=== PATIENT | female | born 1955 | race Caucasian/White ===

== ENCOUNTER 2017-08-03 08:39 | Inpatient (IN) ==
[2017-08-03] MEDS ORDERED: Naloxone 0.4 MG/ML INJ IVP PRN (11:08)
[2017-08-03] MEDS ORDERED: Ondansetron 4 MG/2 ML VIAL IVP PRN (11:08)
[2017-08-03] MEDS ORDERED: Nitroglycerin 0.4 MG TAB.SUBL SL PRN (11:30)
--- NOTE | 2017-08-03 11:40 | Internal Med History&Physical ---
Date of Encounter: 08/03/17 Time of Encounter: 10:30 Assessment and Plan (1) Pneumonia Current visit: Yes Status: Acute 1-View CXR today shows patchy opacity in the lower lung zones, right greater than left. Upper lung zones are clear. Cardiomediastinal silhouette within normal limits as is pulmonary vasculature. No pneumothorax. No large pleural effusion. Pt. reports dx of URI one week ago and failing OP tx. States sx began 1 week ago and worsened in last 48 hours. Denies recent hospitalization. Pt. reports SOB, dyspnea, cough w/yellow/green sputum production, nasal congestion, fever, and chills. Pt. currently meets SIRS criteria w/WBC of 12.2, infection from pneumonia, and RR of 24. Blood cultures x2 and sputum cultures ordered. Legionella and strep pneumoniae antigens ordered. IVPB levaquin 750 mg daily for infection coverage. Supplemental O2 w/titration and SPO2 monitoring. DuoNebs Q4 scheduled. Tessalon 200 mg 3 times a day. 40 mg IVP Solu-Medrol for inflammation (CRP 9 on admission). Will adjust abx coverage based on culture results. Monitor pt. and f/u labs for signs of increasing infection. Pt. is high risk for further morbidity and infection based on OP tx failure, current sx , and hx. Inpatient. Qualifiers: Pneumonia type: due to unspecified organism Laterality: bilateral Lung location: lower lobe of lung Qualified Code(s): J18.9 - Pneumonia, unspecified organism (2) Elevated troponin Current visit: Yes Status: Acute Initial troponin of 0.15 on admission, most likely d/t demand ischemia r/t current pneumonia, SOB, and dyspnea. Will trend x2. Pt. reports CP which worsens w/inspiration and cough. Continuous cardiac telemetry. Nitroglycerin PRN. Will start heparin drip if troponins rise in subsequent lab draws. (3) Chest pain Current visit: Yes Status: Acute Acute chest pain that pt. states worsens w/inspiration and is non-radiating. Initial troponin is 0.15 on admission, most likely d/t demand ischemia r/t current pneumonia, SOB, and dyspnea. Pt. denies hx of cardiac issues, angioplasty/stents, or previous [place]. Will trend trops x2. Continuous cardiac telemetry. Nitroglycerin when necessary. 325 mg aspirin now. Lipitor 40 mg at bedtime ordered. Will monitor pt. and f/u labs closely. Qualifiers: Chest pain type: other chest pain Qualified Code(s): R07.89 - Other chest pain; R07.8 - Other chest pain (4) SIRS (systemic inflammatory response syndrome) Current visit: Yes Status: Acute Patient currently meets SIRS criteria of WBC of 12.2, infection related to pneumonia of bilateral lower lobes, and RR of 24. Temp 99.5, HR 85 bpm, BP 118/ 60, lactic acid 1.1, creatinine 1.04, and total bilirubin 0.4. IV 0.9 NS @ 100 mL/HR. IVPB levaquin 750 mg daily for infection coverage. Blood cultures x 2. Sputum culture. Legionella and strep pneumoniae antigens ordered. Will adjust abx coverage based on culture results. Will monitor pt. and f/u labs closely for signs of increasing infection. (5) JUAN (acute kidney injury) Current visit: Yes Status: Acute Acute kidney injury w/GFR of 54 most likely d/t dehydration from recent URI. IV 0.9 NS @ 100 mL/HR. Will avoid nephrotoxins and monitor f/u labs and I&O. (6) HLD (hyperlipidemia) Current visit: Yes Status: Chronic Hx of chronic HLD. Pt. does not currently take statin. Lipid panel in a.m. labs. Lipitor 40 mg HS ordered. Qualifiers: Hyperlipidemia type: pure hypercholesterolemia Qualified Code(s): E78.00 - Pure hypercholesterolemia, unspecified; E78.0 - Pure hypercholesterolemia (7) Thyroid disease Current visit: Yes Status: Chronic Hx of chronic thyroid disease. Continue pts. Synthroid. (8) DVT prophylaxis Current visit: Yes Status: Acute Lovenox 40 mg 0600 for DVT prophlaxis. Monitor pt. for signs of bleeding. Internal Medicine - H&P: HPI Chief complaint: SOB/Dyspnea Admitted From: Intrahospital Transfer Plans for Post Hospital Care: Home History of present illness: Ms. Barone is a 61 year old female with medical hx of thyroid disease, HLD, and HSV-1 presents from [place] ED with chief complaint of SOB and dyspnea for 1 week which pt. states has become much worse in the past 48 hours. She states she was treated for URI a week ago and has only gotten worse. Pt. reports centralized chest pain that does not radiate which is worse w/inspiration and cough. She reports fever of 102F at home, cold sores around her mouth since Friday, shortness of breath, dyspnea, chills, nasal congestion, productive cough with yellow/green sputum, chest pain, weakness, and dizziness. Patient denies changes in vision, abdominal pain, diarrhea, constipation, nausea, vomiting, unusual bleeding, presyncope, or syncope. Past Med Surg Social Fam HX - Past Medical History Source: patient, old records reviewed Medical history: hyperlipidemia, thyroid disease, other (HSV-1) Psychiatric history: no psych history - Past Surgical History Surgical History: hysterectomy (Partial), other (Gastric bypass, carpal tunnel bilaterally, and tonsillectomy) - Social History Smoking Status: Never smoker Smokeless Tobacco Status: No Alcohol use: none Drug use: none Current living situation: Home, With Family Activity Level: Independent ambulation Recent Out of Country Travel Within the Last 8 Weeks: No Exposure or Possible Exposure to Illness During Travel: No - Family History Mother Race: Family Member Ethnicity: Non- Living Status: Age at : 85 Cause of : ME Hx Family Cardiac Disorders: Yes (MIx4, Stent placement) Hx Family Cancer: Yes (skin cancer) Father Race: Family Member Ethnicity: Non- Living Status: Still Living Hx Family Cardiac Disorders: Yes (Pacemaker) Hx Family Cancer: Yes (Prostate) Brother History Unknown: Yes Race: Family Member Ethnicity: Non- Living Status: Still Living Sister Race: Family Member Ethnicity: Non- Living Status: Still Living Hx Family Cancer: Yes (Breast, Thyroid) Internal Medicine - H&P: Meds Acyclovir [Zovirax] 200 mg PO 5XD 08/03/17 [History] Ergocalciferol (VITAMIN D2) [Vitamin D2] 50,000 unit PO QWEEK 08/03/17 [History] Levothyroxine [Synthroid] 112 mcg PO DAILY 08/03/17 [History] 3 Allergy/AdvReac Type Severity Reaction Status Date / Time codeine Allergy Palpitation Verified 03/27/15 11:45 s Penicillins [PCN] Allergy Rash Verified 03/27/15 11:45 adhesive AdvReac Rash Verified 03/27/15 11:45 latex AdvReac Rash Verified 03/27/15 11:45 All Systems PM: A 10-system review of systems was performed and is negative for pertinent findings except as documented above in the HPI. - Constitutional Constitutional: as per HPI, chills, fever(s), weakness, no night sweats - EENT Eyes: no change in vision, no discharge, no pain, no photophobia Ears: no ear discharge, no ear pain, no tinnitus Nose, mouth and throat: no dysphagia, no nasal discharge, no neck pain, no sore throat - Breasts Breasts: as per HPI - Cardiovascular Cardiovascular ROS IM: as per HPI, chest pain, dyspnea, dyspnea on exertion, no diaphoresis, no lightheadedness, no palpitations, no syncope - Respiratory Respiratory: as per HPI, cough, dyspnea, dyspnea on exertion, change in phlegm color, pain with cough, no wheezing, no excessive phlegm production - Gastrointestinal Gastrointestinal: no abdominal pain, no diarrhea, no hematemesis, no hematochezia, no melena, no nausea, no vomiting - Genitourinary Genitourinary: no change in urinary stream, no dysuria, no flank pain, no hematuria Menstruation: as per HPI, post hysterectomy - Musculoskeletal Musculoskeletal ROS IM: no numbness, no tingling - Integumentary Integumentary IM: no rash, no unusual bruising - Neurological Neurological ROS: as per HPI, dizziness, no confusion, no convulsions, no focal weakness, no numbness, no tingling, no tremor(s) - Psychiatric Psychiatric: as per HPI - Endocrine Endocrine IM: as per HPI - Hematologic/Lymphatic Hematologic/Lymphatic: no easy bruising - Allergic/Immunologic Allergic/Immunologic: as per HPI - Constitutional General appearance: Present: cooperative, mild distress (Respiratory d/t cough/ SOB), A&O X 3, pleasant, obese, answers questions appropriately - Head Head exam: Present: atraumatic, normocephalic - Eye Eye exam: Present: PERRL, conjuntiva pink, sclera anicteric Pupils: Present: PERRL - ENT ENT exam: Present: normal exam, normal external ear exam - Neck Neck exam general surgery: Present: normal inspection, supple, trachea midline. Absent: lymphadenopathy - Respiratory Respiratory exam: Present: accessory muscle use, decreased breath sounds - Cardiovascular Cardiovascular exam: Present: RRR, +S1, +S2. Absent: diastolic murmur, gallop, rubs, systolic murmur - GI/Abdominal GI/Abdominal exam: Present: normal bowel sounds, soft, no peritoneal signs. Absent: distended, tenderness - Rectal Rectal exam: Present: deferred - Additional comments: exam deferred. - Extremities Exam Extremities exam: Present: warm, radial pulses palpable and symmetrical. Absent : calf tenderness, cyanotic, pedal edema - Back Exam Back exam: Present: normal inspection - Neurological Exam Neurological exam: Present: CN II-XII intact, oriented X3, no focal deficits. Absent: pronater drift, facial droop, speech deficit - Psychiatric Psychiatric exam: Present: normal affect, normal mood - Skin Skin exam: Present: dry, intact Internal Med - H&P Results - Diagnostic Studies Chest x-ray Additional comments: 1-View CXR today shows there is patchy opacity in the lower lung zones, right greater than left. Upper lung zones are clear. Cardiomediastinal silhouette within normal limits as is pulmonary vasculature. No pneumothorax. No large pleural effusion.
[2017-08-03] MEDS ORDERED: MethylPREDNISolone 40 MG/ML VIAL IVP ONE (11:51)
[2017-08-03] MEDS: Ipratropium/Albuterol Neb 3 ML IH SCH ×3 (12:10→20:50)
[2017-08-03] MEDS: Benzonatate 100 MG CAPSULE PO PRN ×2 (12:18→21:13)
[2017-08-03] MEDS: Lactobacillus 1 EACH CAP.SPRINK PO SCH (12:18)
[2017-08-03] MEDS: Acetaminophen 325 MG TABLET PO PRN (12:18)
[2017-08-03] MEDS: Acyclovir 200 MG CAPSULE PO SCH ×4 (12:19→23:12)
[2017-08-03] MEDS: 0.9 % Sodium Chloride 1,000 ML IVC SCH ×2 (12:19→23:08)
[2017-08-03] MEDS: Levofloxacin 750 MG/150 ML 750 MG/150 ML BAG IVPB SCH (12:20)
[2017-08-03 15:47] LABS: Bilirubin,Urine Small (Negative); Blood,Urine Negative (Negative); Clarity,Urine Turbid (Clear); Color,Urine Red (Yellow); Glucose,Urine (UA) Normal (Normal); Ketones,Urine Trace mg/dL (Negative); Leukocyte Esterase,Urine Moderate (Negative); Nitrite,Urine Positive (Negative); Protein,Urine 30 mg/dL (Neg-Trace); Specific Gravity,Urine > 1.030 (1.010-1.025); Urobilinogen,Urine Normal (Normal)
[2017-08-03 15:49] LABS: Bacteria,Urine Few per hpf (None-Few); RBC,Urine 0-3 per hpf (0-3); Squamous Epithelial Cell,Urine Many per lpf (None-Few); WBC,Urine 30-50 per hpf (0-3)
[2017-08-03] MEDS: *HR* HYDROmorphone (PF) 1 MG/ML SYRINGE IVP PRN (21:13)
[2017-08-04] MEDS: Ipratropium/Albuterol Neb 3 ML IH SCH ×7 (00:28→23:33)
[2017-08-04] MEDS: Melatonin 3 MG TABLET PO PRN ×2 (00:57→21:07)
[2017-08-04 04:41] LABS: INR 1.3; Prothrombin Time 13.6 Seconds (9.4-12.1)
[2017-08-04 04:42] LABS: Basophils % 0.1 %; Hematocrit 30.6 % (35.3-44.9); Immature Granulocytes % 1.2 % (0-4); Lymphocytes # 0.8 K/mcL (0.6-4.6); Lymphocytes % 6.7 %; Mean Corpuscular HGB Conc 32.7 g/dL (31.6-35.5); Mean Corpuscular Hemoglobin 31.3 pg (28.0-33.3); Mean Corpuscular Volume 95.6 fL (83.0-100.0); Mean Platelet Volume 12.9 fL (9.4-12.4); Monocytes # 0.5 K/mcL (0.0-1.3); Monocytes % 4.3 %; Neutrophils # 10.4 K/mcL (1.6-8.9); Platelet Count 150 K/mcL (140-400); Red Cell Distribution Width 13.8 % (11.5-14.5); Segmented Neutrophils % 87.7 %
[2017-08-04 04:44] LABS: Activated Partial Thrombo Time 29.2 Seconds (26.0-36.0)
[2017-08-04 05:01] LABS: Alanine Aminotransferase 23 Units/L (0-55); Albumin 2.3 g/dL (3.5-5.0); Albumin/Globulin Ratio 0.6 (1.1-2.2); Alkaline Phosphatase 82 Units/L (38-126); Aspartate Amino Transferase 21 Units/L (5-34); BUN/Creatinine Ratio 21 (6-26); Bilirubin,Total 0.6 mg/dL (0.2-1.2); Blood Urea Nitrogen 23 mg/dL (7-20); Calcium 8.2 mg/dL (8.6-10.8); Carbon Dioxide 23 mEq/L (19-29); Chloride 108 mEq/L (98-109); Chol/HDL Ratio 4.4 (0-4.9); Cholesterol 123 mg/dL (< 200); Globulin 3.7 g/dL (2.4-3.5); Glucose 159 mg/dL (70-99); HDL Cholesterol 28 mg/dL (40-59); LDL Cholesterol,Calculated 78 mg/dL (0-99); Magnesium 1.9 mg/dL (1.6-2.6); Osmolality,Calculated 293 (280-300); Potassium 4.1 mEq/L (3.5-4.5); Sodium 138 mEq/L (136-145); Triglycerides 86 mg/dL (< 150); eGFR For African Americans > 60 (> 60); eGFR For Non-African Americans 51 (> 60)
[2017-08-04] MEDS: *HR* Enoxaparin 40 MG/0.4 ML SYRINGE SQ SCH (06:41)
--- NOTE | 2017-08-04 09:43 | Internal Med Progress Note ---
<Juanito Kaur - Last Filed: 08/04/17 15:59> Date of Encounter: 08/04/17 Time of Encounter: 08:00 - Assessment and plan (1) Pneumonia Current Visit: Yes Status: Acute Assessment and plan: CXR performed on 08/03/17: Patchy opacity and lower lung zones, R greater than L. SIRS criteria on admission: WC of 12.2, infection, respiratory rate of 24. Blood and sputum cultures ordered; sputum culture positive for gram-positive cocci. Legionella and strep pneumo antigens are negative. White count has decreased to 11.8. Plan: -Levaquin 750 mg IV daily, started on 08/03/17; day 2 of antibiotics -Tessalon 200 mg TID -DuoNeb 3 mL inhaled every 4 -Supplemental O2 with titration -Adjust antibiotics based on culture results. -Order respiratory panel. Qualifiers: Pneumonia type: due to unspecified organism Laterality: bilateral Lung location: lower lobe of lung Qualified Code(s): J18.9 - Pneumonia, unspecified organism (2) Elevated troponin Current Visit: Yes Status: Acute Assessment and plan: Initial troponin of 0.15 on admission. Likely due to demand ischemia. Trend troponin 2. Patient's chest pain is exacerbated with cough and deep inspiration. Plan: -Trend troponin -Cardiac telemetry. -Nitroglycerin 0.4 mg SL Q5min PRN -Start heparin drip if rise in troponin. -Obtain echocardiogram. (3) Chest pain Current Visit: Yes Status: Acute Assessment and plan: Exacerbated by cough and deep inspiration, nonradiating. Initial troponin 0.15 on admission. No history of cardiac issues, angioplasty/stents, or previous [place]. Patient's chest pain this morning has resolved. Plan: -Trend troponin -Continuous cardiac telemetry -Cardiac diet Qualifiers: Chest pain type: other chest pain Qualified Code(s): R07.89 - Other chest pain; R07.8 - Other chest pain (4) SIRS (systemic inflammatory response syndrome) Current Visit: Yes Status: Acute Assessment and plan: SIRS criteria on admission: White blood cell count 12.2, pneumonia, respiratory rate 24. Patient's white count has since decreased to 11.8, respiratory rate this morning was 16. Continue IV antibiotics. (5) Thyroid disease Current Visit: Yes Status: Chronic Assessment and plan: Synthroid 112 mcg PO (6) DVT prophylaxis Current Visit: Yes Status: Acute Assessment and plan: Lovenox 40 mg 0600 for DVT prophylaxis. - Subjective Interval history: Patient is a 61-year-old female who presented to the hospital on 08/03/17 with a chief complaint of shortness of breath and dyspnea of one week's duration. Patient states that her shortness of breath was much worse in the 48 hours leading up to admission. She was treated for a URI one week ago, and has only gotten worse. She also complains of centralized, nonradiating chest pain. Her chest pain is exacerbated with inspiration and cough. Patient had a fever of 102 degrees at home. She has had cold sores around her mouth since Friday. She also reported having chills, nasal congestion, productive cough of yellow- green sputum, chest pain, weakness, dizziness. Patient met SIRS criteria on admission with a white count of 12.2, known infection source of pneumonia, and a respiratory rate of 24. CXR demonstrated the presence of patchy opacities in the lower lung zones, R greater than L. Upper zones were clear. Blood cultures 2 and sputum cultures were ordered. Legionella and strep pneumo antigens were ordered. Patient was started on IV Levaquin 750 mg daily for infection coverage. Supplemental oxygen with titration. DuoNeb's every 4, Tessalon 200 mg 2 times a day, 40 mg Solu-Medrol for inflammation. Patient had an elevated troponin on admission 0.15. This is most likely due to demand ischemia. Trend troponin. Continuous cardiac telemetry. Nitroglycerin when necessary. Sputum culture was positive for gram-positive diplococci. Legionella and strep pneumo antigens were negative. White count this morning was 11.8, was 12.2 on admission. Urinalysis revealed the following: Red urine, turbid. Positive nitrate, leukocyte esterase, white blood cells, many epithelial cells. Culture indicated. Patient was seen and examined at bedside this morning. She reports that she is feeling much better than she did on arrival. Denies chest pain, cough, fever, chills, shortness of breath, or sputum production. - Constitutional Vitals: Temp Pulse Resp BP Pulse Ox 97.6 F 88 16 102/56 94 08/04/17 07:20 08/04/17 07:20 08/04/17 07:20 08/04/17 07:20 08/04/17 07:20 General appearance: Present: cooperative, A&O X 3, pleasant, obese, answers questions appropriately - Head Head exam: Present: atraumatic, normocephalic - Eye Eye exam: Present: PERRL, conjuntiva pink, sclera anicteric Pupils: Present: PERRL - Neck Neck exam general surgery: Present: supple, trachea midline. Absent: lymphadenopathy - Respiratory Respiratory exam: Present: decreased breath sounds. Absent: accessory muscle use, rales, rhonchi, wheezes - Cardiovascular Cardiovascular exam: Present: RRR, +S1, +S2. Absent: diastolic murmur, gallop, rubs, systolic murmur - Extremities Exam Extremities exam: Present: warm, radial pulses palpable and symmetrical. Absent : calf tenderness, cyanotic, pedal edema - Skin Skin exam: Present: dry, intact Internal Medicine: Result - Labs CBC & Chem 7: 08/04/17 03:57 08/04/17 03:57 Labs: Short CBC 08/04/17 Range/Units 03:57 WBC 11.8 H (4.3-11.1) K/mcL Hgb 10.0 L D (11.5-15.4) g/dL Hct 30.6 L (35.3-44.9) % Plt Count 150 (140-400) K/mcL Neutrophils # 10.4 H (1.6-8.9) K/mcL BMP 08/04/17 03:57 Sodium 138 Potassium 4.1 Chloride 108 Carbon Dioxide 23 BUN 23 H Creatinine 1.08 Glucose 159 H Calcium 8.2 L Cardiac Enzymes 08/03/17 Range/Units 14:03 Troponin I 0.11 H* (0-0.03) ng/mL Liver Function 08/04/17 Range/Units 03:57 Total Bilirubin 0.6 (0.2-1.2) mg/dL AST 21 (5-34) Units/L ALT 23 (0-55) Units/L Alkaline Phosphatase 82 (38-126) Units/L Albumin 2.3 L (3.5-5.0) g/dL Urine 08/03/17 Range/Units 13:34 Urine Color Red A (Yellow) Urine Clarity Turbid A (Clear) Urine pH 6.0 (5.0-8.0) pH Units Ur Specific [place] > 1.030 H (1.010-1.025) Urine Protein 30 H (Neg-Trace) mg/dL Urine Glucose (UA) Normal (Normal) mg/dL - ABG Interpretation ABG results: PT/INR, D-dimer PT 13.6 Seconds (9.4-12.1) H 08/04/17 03:57 Consult Discharge Plan - Plan Referrals: Jade Jay, NATURAL DEVELOPER [Primary Care Provider] - <J Carlos Cerda - Last Filed: 08/04/17 19:58> Date of Encounter: 08/04/17 - Constitutional Vitals: Temp Pulse Resp BP Pulse Ox 97.9 F 95 17 99/59 93 08/04/17 16:41 08/04/17 16:41 08/04/17 16:41 08/04/17 16:41 08/04/17 16:41 Internal Medicine: Result - Labs CBC & Chem 7: 08/04/17 03:57 08/04/17 03:57 Labs: Short CBC 08/04/17 Range/Units 03:57 WBC 11.8 H (4.3-11.1) K/mcL Hgb 10.0 L D (11.5-15.4) g/dL Hct 30.6 L (35.3-44.9) % Plt Count 150 (140-400) K/mcL Neutrophils # 10.4 H (1.6-8.9) K/mcL BMP 08/04/17 03:57 Sodium 138 Potassium 4.1 Chloride 108 Carbon Dioxide 23 BUN 23 H Creatinine 1.08 Glucose 159 H Calcium 8.2 L Cardiac Enzymes 08/04/17 Range/Units 10:54 Troponin I 0.10 H* (0-0.03) ng/mL Liver Function 08/04/17 Range/Units 03:57 Total Bilirubin 0.6 (0.2-1.2) mg/dL AST 21 (5-34) Units/L ALT 23 (0-55) Units/L Alkaline Phosphatase 82 (38-126) Units/L Albumin 2.3 L (3.5-5.0) g/dL - ABG Interpretation ABG results: PT/INR, D-dimer PT 13.6 Seconds (9.4-12.1) H 08/04/17 03:57 - Attending Attestation I conducted a face to face diagnostic evaluation of this patient and my medical decision-making was reviewed with the Resident Physician, Dr. Juaniot Kaur. I agree with the documented findings, disposition and treatment plan as described except to the extent set forth below: Patient reports severe back pain which is unusual for her. It could be in the context of pneumonia, however I am concerned of spinal or paraspinal infection. I will check ESR and CRP. We will have a low threshold for obtaining imaging of the thoracic spine if she spikes a fever or if pain does not improve. Continue with antibiotics for pneumonia. Follow-up blood cultures.
[2017-08-04] MEDS: 0.9 % Sodium Chloride 1,000 ML IVC SCH (10:11)
[2017-08-04] MEDS: Acyclovir 200 MG CAPSULE PO SCH ×5 (10:11→23:39)
[2017-08-04] MEDS: Lactobacillus 1 EACH CAP.SPRINK PO SCH (10:11)
[2017-08-04] MEDS: Aspirin Enteric Coated 325 MG Tablet PO SCH (10:11)
[2017-08-04] MEDS: Levofloxacin 750 MG/150 ML 750 MG/150 ML BAG IVPB SCH (10:12)
[2017-08-04] MEDS: Benzonatate 100 MG CAPSULE PO PRN (10:14)
[2017-08-04] MEDS: Ketorolac 30 MG/ML VIAL IVP PRN (10:30)
[2017-08-04] MEDS: *HR* HYDROmorphone (PF) 1 MG/ML SYRINGE IVP PRN (12:38)
--- NOTE | 2017-08-04 15:25 | Electrocardiograph Report ---
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
[2017-08-04] MEDS ORDERED: *HR* OxyCODONE/APAP 10/325 TABLET PO PRN (15:48)
[2017-08-04] MEDS: Acetaminophen 325 MG TABLET PO PRN (21:07)
[2017-08-04] MEDS: hydrOXYzine pamoate 25 MG CAPSULE PO PRN (21:07)
[2017-08-05] MEDS: Ipratropium/Albuterol Neb 3 ML IH SCH ×3 (03:17→11:20)
[2017-08-05 05:08] LABS: Basophils % 0.1 %; Eosinophils # 0.1 K/mcL (0.0-0.6); Eosinophils % 1.5 %; Hematocrit 31.2 % (35.3-44.9); Hemoglobin 9.9 g/dL (11.5-15.4); Immature Granulocytes % 0.4 % (0-4); Lymphocytes # 1.2 K/mcL (0.6-4.6); Lymphocytes % 17.1 %; Mean Corpuscular HGB Conc 31.7 g/dL (31.6-35.5); Mean Corpuscular Hemoglobin 30.6 pg (28.0-33.3); Mean Corpuscular Volume 96.3 fL (83.0-100.0); Mean Platelet Volume 13.1 fL (9.4-12.4); Monocytes # 0.5 K/mcL (0.0-1.3); Monocytes % 6.4 %; Neutrophils # 5.4 K/mcL (1.6-8.9); Platelet Count 208 K/mcL (140-400); Red Blood Count 3.24 M/mcL (3.82-4.97); Segmented Neutrophils % 74.5 %
[2017-08-05 05:41] LABS: Albumin 2.2 g/dL (3.5-5.0); Albumin/Globulin Ratio 0.6 (1.1-2.2); Bilirubin,Total 0.6 mg/dL (0.2-1.2); Calcium 8.8 mg/dL (8.6-10.8); Globulin 3.6 g/dL (2.4-3.5); Total Protein 5.8 g/dL (6.0-8.3)
[2017-08-05] MEDS: *HR* Enoxaparin 40 MG/0.4 ML SYRINGE SQ SCH (05:59)
[2017-08-05] MEDS: Levofloxacin 750 MG/150 ML 750 MG/150 ML BAG IVPB SCH (08:50)
[2017-08-05] MEDS: Lactobacillus 1 EACH CAP.SPRINK PO SCH (08:50)
[2017-08-05] MEDS: Aspirin Enteric Coated 325 MG Tablet PO SCH (08:50)
[2017-08-05] MEDS: Acyclovir 200 MG CAPSULE PO SCH ×2 (09:00→11:50)
[2017-08-05] MEDS: hydrOXYzine pamoate 25 MG CAPSULE PO PRN (09:59)
--- NOTE | 2017-08-05 10:06 | Internal Med Progress Note ---
Date of Encounter: 08/05/17 Time of Encounter: 09:45 - Assessment and plan (1) Pneumonia Current Visit: Yes Status: Acute Assessment and plan: CXR performed on 08/03/17: Patchy opacity and lower lung zones, R greater than L. SIRS criteria on admission: WC of 12.2, infection, respiratory rate of 24. White count has decreased to 7.2. Blood culture 2 obtained on 08/03/17: No growth. Sputum culture on 08/03/17: Positive for gram-positive diplococci. Legionella and strep pneumo antigens are negative. Respiratory infection panel still pending. Plan: -Levaquin 750 mg IV daily, started on 08/03/17; day 3 of antibiotics -Tessalon 200 mg TID -DuoNeb 3 mL inhaled every 4 -Supplemental O2 with titration -Adjust antibiotics based on culture results. -Order respiratory panel. Qualifiers: Pneumonia type: due to unspecified organism Laterality: bilateral Lung location: lower lobe of lung Qualified Code(s): J18.9 - Pneumonia, unspecified organism (2) Elevated troponin Current Visit: Yes Status: Acute Assessment and plan: Initial troponin of 0.15 on admission. Likely due to demand ischemia. Trend troponin levels 2: 0.11, 0.10. Patient's chest pain is exacerbated with cough and deep inspiration. Plan: -Cardiac telemetry. -Nitroglycerin 0.4 mg SL Q5min PRN -Start heparin drip if rise in troponin. -Obtain echocardiogram. (3) Chest pain Current Visit: Yes Status: Acute Assessment and plan: Patient presented with chest pain exacerbated by cough and deep inspiration, nonradiating. Initial troponin 0.15 on admission. No history of cardiac issues, angioplasty/stents, or previous [place]. Patient's chest pain has resolved. Troponin levels: 0.11, 0.10. Plan: -Continuous cardiac telemetry -Cardiac diet Qualifiers: Chest pain type: other chest pain Qualified Code(s): R07.89 - Other chest pain; R07.8 - Other chest pain (4) SIRS (systemic inflammatory response syndrome) Current Visit: Yes Status: Acute Assessment and plan: SIRS criteria on admission: White blood cell count 12.2, pneumonia, respiratory rate 24. Patient's white count has since decreased to 7.2, respiratory rate this morning was 18. Continue IV antibiotics. (5) Thyroid disease Current Visit: Yes Status: Chronic Assessment and plan: Synthroid 112 mcg PO (6) DVT prophylaxis Current Visit: Yes Status: Acute Assessment and plan: Lovenox 40 mg 0600 for DVT prophylaxis. - Subjective Interval history: Patient is a 61-year-old female who presented to the hospital on 08/03/17 with a chief complaint of shortness of breath and dyspnea of one week's duration. Patient states that her shortness of breath was much worse in the 48 hours leading up to admission. She was treated for a URI one week ago, and has only gotten worse. She also complains of centralized, nonradiating chest pain. Her chest pain is exacerbated with inspiration and cough. Patient had a fever of 102 degrees at home. She has had cold sores around her mouth since Friday. She also reported having chills, nasal congestion, productive cough of yellow- green sputum, chest pain, weakness, dizziness. Patient met SIRS criteria on admission with a white count of 12.2, known infection source of pneumonia, and a respiratory rate of 24. CXR demonstrated the presence of patchy opacities in the lower lung zones, R greater than L. Upper zones were clear. Blood cultures 2 and sputum cultures were ordered. Legionella and strep pneumo antigens were ordered. Patient was started on IV Levaquin 750 mg daily for infection coverage. Supplemental oxygen with titration. DuoNeb's every 4, Tessalon 200 mg 2 times a day, 40 mg Solu-Medrol for inflammation. Patient had an elevated troponin on admission 0.15. This is most likely due to demand ischemia. Trend troponin. Continuous cardiac telemetry. Nitroglycerin when necessary. Sputum culture was positive for gram-positive diplococci. Legionella and strep pneumo antigens were negative. White count this morning was 11.8, was 12.2 on admission. Urinalysis revealed the following: Red urine, turbid. Positive nitrate, leukocyte esterase, white blood cells, many epithelial cells. Culture indicated. Patient was seen and examined at bedside this morning. Reports feeling better than she did yesterday. She still complains of some back pain. Denies having any fever, chills, cough, or shortness of breath. Patient has no complaints at this time. - Constitutional Vitals: Temp Pulse Resp BP Pulse Ox 98.5 F 82 18 101/59 100 08/05/17 07:47 08/05/17 07:47 08/05/17 07:47 08/05/17 07:47 08/05/17 07:47 General appearance: Present: cooperative, A&O X 3, pleasant, obese, answers questions appropriately Internal Medicine: Result - Labs CBC & Chem 7: 08/05/17 03:39 08/05/17 03:39 Labs: Short CBC 08/05/17 Range/Units 03:39 WBC 7.2 (4.3-11.1) K/mcL Hgb 9.9 L (11.5-15.4) g/dL Hct 31.2 L (35.3-44.9) % Plt Count 208 (140-400) K/mcL Neutrophils # 5.4 (1.6-8.9) K/mcL BMP 08/05/17 03:39 Sodium 139 Potassium 4.0 Chloride 110 H Carbon Dioxide 24 BUN 26 H Creatinine 1.12 H Glucose 96 Calcium 8.8 Cardiac Enzymes 08/04/17 Range/Units 10:54 Troponin I 0.10 H* (0-0.03) ng/mL Liver Function 08/05/17 Range/Units 03:39 Total Bilirubin 0.6 (0.2-1.2) mg/dL AST 49 H (5-34) Units/L ALT 28 (0-55) Units/L Alkaline Phosphatase 77 (38-126) Units/L Albumin 2.2 L (3.5-5.0) g/dL - ABG Interpretation ABG results: PT/INR, D-dimer PT 13.6 Seconds (9.4-12.1) H 08/04/17 03:57 Consult Discharge Plan - Plan Referrals: Jade Jay, BUSINESS LINE MANAGER [Primary Care Provider] -
[2017-08-05 11:32] VITALS: BP 99/58
--- NOTE | 2017-08-05 11:40 | Discharge Summary ---
<Juanito Kaur - Last Filed: 08/05/17 11:38> Date of Encounter: 08/05/17 Time of Encounter: 09:45 - Discharge Diagnosis (1) Pneumonia Priority: Primary Status: Acute Comments: Patient will be given 4 more days of Levaquin 750 by mouth daily. Qualifiers: Pneumonia type: due to unspecified organism Laterality: bilateral Lung location: lower lobe of lung Qualified Code(s): J18.9 - Pneumonia, unspecified organism (2) Elevated troponin Priority: Secondary Status: Acute (3) Chest pain Priority: Secondary Status: Acute Qualifiers: Chest pain type: other chest pain Qualified Code(s): R07.89 - Other chest pain; R07.8 - Other chest pain (4) SIRS (systemic inflammatory response syndrome) Priority: Secondary Status: Acute (5) Thyroid disease Priority: Secondary Status: Chronic (6) DVT prophylaxis Priority: Secondary Status: Acute - Discharge Medications Prescriptions: Levofloxacin [Levaquin] 750 mg PO DAILY #4 tablet Tramadol HCl [Ultram] 50 mg PO TID PRN #21 tab PRN Reason: Pain Home Medications: Acyclovir [Zovirax] 200 mg PO 5XD 08/03/17 [History] Ergocalciferol (VITAMIN D2) [Vitamin D2] 50,000 unit PO QWEEK 08/03/17 [History] Levothyroxine [Synthroid] 112 mcg PO DAILY 08/03/17 [History] Levofloxacin [Levaquin] 750 mg PO DAILY #4 tablet 08/05/17 [Rx] Tramadol HCl [Ultram] 50 mg PO TID PRN #21 tab 08/05/17 [Rx] Allergies/Adverse Reactions: 3 Allergy/AdvReac Type Severity Reaction Status Date / Time codeine Allergy Palpitation Verified 03/27/15 11:45 s Penicillins [PCN] Allergy Rash Verified 03/27/15 11:45 adhesive AdvReac Rash Verified 03/27/15 11:45 latex AdvReac Rash Verified 03/27/15 11:45 Procedures/tests Complete & Pending: Procedures Performed prior 72 hours Category Date Time Status EKG [ECG 12 lead ECG] [ECG] Routine Y 08/03/17 11:06 Completed EV echocardiogram Routine Y 08/04/17 13:48 Completed Date of admission: 08/03/17 11:08 Primary care physician: Jade Jay CNP Consults: 08/03/17 11:12 Consult to Dredging Inspector [CONS] Routine Reason for SW Consult: Please assess patient for possible home needs for post -discharge planning. 08/03/17 11:13 Consult to Occupational Therapy [CONS] Routine Comment: Evaluate, develop and implement POC Reason for Consult: Patient reports dizziness/unsteadiness w/ambulation. Please assess for strength, stability, safety, ambulation, and possible assistive home needs for post-discharge planning. 08/03/17 11:14 Consult to Physical Therapy [CONS] Routine Comment: Evaluate, develop and implement POC Reason for Consult: Patient reports dizziness/unsteadiness w/ambulation. Please assess for strength, stability, safety, ambulation, and possible assistive home needs for post-discharge planning. 08/03/17 12:53 Consult to Nutrition [CONS] Routine Comment: Consulting Provider: NUTRITION Reason for Dietary Consult: PO Supplementation Discharging clinician: Juanito Kaur Anticipated date of discharge: 08/05/17 - Patient Status Disposition: Home, Self-Care Condition: Fair Overall status at discharge: patient is progressing back to baseline - Discharge Instructions Instructions: Pneumonia (DC) Follow Up With: Jade Jay CNP [Primary Care Provider] - 08/14/17 10:30 am (please follow up as schedule..) - Diet and Activity Activity: increase activity as tolerated Hospital course: Patient is a 61-year-old female who presented to the hospital on 08/03/17 with a chief complaint of shortness of breath and dyspnea of one week's duration. Patient states that her shortness of breath was much worse in the 48 hours leading up to admission. She was treated for a URI one week ago, and has only gotten worse. She also complains of centralized, nonradiating chest pain. Her chest pain is exacerbated with inspiration and cough. Patient had a fever of 102 degrees at home. She has had cold sores around her mouth since Friday. She also reported having chills, nasal congestion, productive cough of yellow- green sputum, chest pain, weakness, dizziness. Patient met SIRS criteria on admission with a white count of 12.2, known infection source of pneumonia, and a respiratory rate of 24. CXR demonstrated the presence of patchy opacities in the lower lung zones, R greater than L. Upper zones were clear. Blood cultures 2 and sputum cultures were ordered. Legionella and strep pneumo antigens were ordered. Patient was started on IV Levaquin 750 mg daily for infection coverage. Supplemental oxygen with titration. DuoNeb's every 4, Tessalon 200 mg 2 times a day, 40 mg Solu-Medrol for inflammation. Patient had an elevated troponin on admission 0.15. Troponins were then trended ; 0.11, 0.10. This was most likely due to demand ischemia. Trend troponin. Continuous cardiac telemetry. Nitroglycerin when necessary. Sputum culture was positive for gram-positive diplococci. Legionella and strep pneumo antigens were negative. White count this morning was 7.2, was 12.2 on admission. Patient was seen and examined at bedside this morning. Reports feeling better than she did yesterday. She still complains of some back pain. Denies having any fever, chills, cough, or shortness of breath. Patient has no complaints at this time. Patient will be discharged on Levaquin 750 mg by mouth daily for 4 more days. - Time Spent with Patient Total time spent providing and/or coordinating discharge services: Greater than 30 minutes (40 minutes) - Constitutional Vitals: Temp Pulse Resp BP Pulse Ox 98.0 F 88 17 99/58 96 08/05/17 11:30 08/05/17 11:30 08/05/17 11:30 08/05/17 11:30 08/05/17 11:30 General appearance: Present: cooperative, A&O X 3, pleasant, obese, answers questions appropriately - Head Head exam: Present: atraumatic, normocephalic - Eye Eye exam: Present: PERRL, conjuntiva pink, sclera anicteric Pupils: Present: PERRL - Neck Neck exam general surgery: Present: supple, trachea midline. Absent: lymphadenopathy - Respiratory Respiratory exam: Present: wheezes. Absent: accessory muscle use, rales, rhonchi - Cardiovascular Cardiovascular exam: Present: RRR, +S1, +S2. Absent: diastolic murmur, gallop, rubs, systolic murmur - Extremities Exam Extremities exam: Present: warm, radial pulses palpable and symmetrical. Absent : calf tenderness, cyanotic, pedal edema - Skin Skin exam: Present: dry, intact <Andrew Crystal H - Last Filed: 08/05/17 14:05> Date of Encounter: 08/05/17 Procedures/tests Complete & Pending: Procedures Performed prior 72 hours Category Date Time Status EKG [ECG 12 lead ECG] [ECG] Routine Y 08/03/17 11:06 Completed EV echocardiogram Routine Y 08/04/17 13:48 Completed Date of admission: 08/03/17 11:08 Primary care physician: Jade Jay CNP Consults: 08/03/17 11:12 Consult to Dredging Inspector [CONS] Routine Reason for SW Consult: Please assess patient for possible home needs for post -discharge planning. 08/03/17 11:13 Consult to Occupational Therapy [CONS] Routine Comment: Evaluate, develop and implement POC Reason for Consult: Patient reports dizziness/unsteadiness w/ambulation. Please assess for strength, stability, safety, ambulation, and possible assistive home needs for post-discharge planning. 08/03/17 11:14 Consult to Physical Therapy [CONS] Routine Comment: Evaluate, develop and implement POC Reason for Consult: Patient reports dizziness/unsteadiness w/ambulation. Please assess for strength, stability, safety, ambulation, and possible assistive home needs for post-discharge planning. 08/03/17 12:53 Consult to Nutrition [CONS] Routine Comment: Consulting Provider: NUTRITION Reason for Dietary Consult: PO Supplementation Hospital course: Ms. Barone is a 61 year old female - Time Spent with Patient Total time spent providing and/or coordinating discharge services: - Constitutional Vitals: Temp Pulse Resp BP Pulse Ox 98.0 F 88 17 99/58 96 08/05/17 11:30 08/05/17 11:30 08/05/17 11:30 08/05/17 11:30 08/05/17 11:30 - Attending Attestation Sepsis secondary to community-acquired pneumonia, unknown agent Time spent: 40 minutes Levaquin prescription was given to the patient I examined this patient and my medical decision-making was reviewed with the Resident Physician. I agree with the documented findings, disposition and treatment plan as described except to the extent set forth below.
[2017-08-05] MEDS: Ketorolac 30 MG/ML VIAL IVP PRN (11:53)
== END 2017-08-05 13:44 | disposition home or self-care (01) | DRG 720 ==
LOC: 2ANU → SUATTDRO 11:08
PROVIDERS: ADMIT Hospitalist; ATTEND Internal Medicine